=== PATIENT | female | born 1960 | race Caucasian/White ===

== ENCOUNTER 2018-04-19 08:00 | Outpatient (CLI) | payer BC ==
[2018-04-19 17:40] LABS: BASOPHILS # (AUTO) 0.1 10^3/uL (0.0-0.1); BASOPHILS % (AUTO) 1.2 %; EOSINOPHILS # (AUTO) 0.2 10^3/uL (0.0-0.7); HGB - HEMOGLOBIN 13.1 g/dL (12.0-16.0); LYMPHOCYTES # (AUTO) 1.9 10^3/uL (1.5-3.5); LYMPHOCYTES % (AUTO) 41.6 %; MEAN CORPUSCULAR HGB CONC 32.9 g/dL (32.0-36.0); MEAN CORPUSCULAR VOLUME 88.2 fL (81.0-99.0); MEAN PLATELET VOLUME 10.5 fL (7.9-10.8); MONOCYTES # (AUTO) 0.3 10^3/uL (0.0-1.0); MONOCYTES % (AUTO) 7.4 %; NEUTROPHILS # (AUTO) 2.1 10^3/uL (1.5-6.6); NEUTROPHILS % (AUTO) 45.8 %; PLT - PLATELET COUNT 317 10^3/uL (130-450); RED BLOOD COUNT 4.51 10^6/uL (4.20-5.40); RED CELL DISTRIBUTION WIDTH 14.4 % (12.0-15.0); WHITE BLOOD COUNT 4.6 x10^3/uL (4.8-10.8)
[2018-04-19 18:09] LABS: ALBUMIN 4.4 g/dL (3.2-5.5); ALBUMIN/GLOBULIN RATIO 1.6 (1.0-2.2); ALKALINE PHOSPHATASE 38 IU/L (42-121); ALT ALANINE AMINOTRANSFERASE 13 IU/L (10-60); AST ASPARTATE AMINOTRANSFERASE 23 IU/L (10-42); BILIRUBIN,TOTAL 0.8 mg/dL (0.2-1.0); BUN - BLOOD UREA NITROGEN 14 mg/dL (6-20); CALCIUM 9.6 mg/dL (8.5-10.3); CARBON DIOXIDE - CO2 28 mmol/L (21-32); CHLORIDE 103 mmol/L (101-111); CHOL/HDL RATIO 2.7 (<4.4); CHOLESTEROL 218 mg/dL; CREATININE 0.8 mg/dL (0.4-1.0); GFR - MDRD 73 (>89); GLUCOSE 91 mg/dL (70-100); HDL CHOLESTEROL 81 mg/dL; LDL CHOLESTEROL,CALCULATED 122 mg/dL; LDL/HDL RATIO 1.5 (<4.4); SODIUM 139 mmol/L (135-145); TOTAL PROTEIN 7.1 g/dL (6.7-8.2); VLDL CHOLESTEROL 15 mg/dL
== END 2018-04-19 08:01 | disposition home or self-care (01) ==
LOC: LAB.S 08:00
PROVIDERS: ATTEND Family Medicine
DX: Z12.11 Encounter for screening for malignant neoplasm of colon (principal); K59.00 Constipation, unspecified
CPT/HCPCS: 36415; 80053; 80061; 82306; 83721; 84443; 85014; 85018; 85025

== ENCOUNTER 2018-07-13 08:17 | Outpatient (CLI) | payer BC ==
--- NOTE | 2018-07-13 10:49 | Ultrasound Report ---
Procedure Date: 07/13/2018 Accession Number: [id number] / [id number] Procedure: US - Bladder CPT Code: FULL RESULT: EXAM: PELVIS ULTRASOUND, LIMITED, URINARY BLADDER EXAM DATE: 07/13/2018 10:04 AM. CLINICAL HISTORY: Recurrent urinary tract infections. Dysuria. COMPARISON: None. TECHNIQUE: Real-time ultrasound of the urinary bladder, with recording of multiple static images. FINDINGS: Sotelo of the bladder are thin and smooth. No mural nodules or internal echodensities. Prevoid bladder volume is 299 cc. Postvoid bladder volume is 0 cc. IMPRESSION: Normal ultrasound examination of the urinary bladder. No postvoid bladder residual. RADIA
--- NOTE | 2018-07-13 15:14 | Ultrasound Report ---
Procedure Date: 07/13/2018 Accession Number: [id number] / [id number] Procedure: US - Arterial Visceral Complete CPT Code: FULL RESULT: EXAM: RENAL ARTERY DOPPLER ULTRASOUND EXAM DATE: 07/13/2018 10:39 AM. CLINICAL HISTORY: Recurrent UTI, kidney infection, abnormal GFR, elevated D. COMPARISON: None. TECHNIQUE: Real-time sonographic vascular imaging was performed by the train station agent through the renal arterial system with a linear transducer utilizing color-flow, Doppler flow, and spectral analysis. Multiple practice representative static images were saved for review. FINDINGS: Right Kidney: 10.6 X 3.5 X 4.3 cm. Note is made of next renal pelvis. No hydronephrosis or suspicious mass. Right Segmental Artery: Upper pole: PSV 54 cm/sec, RI .59. Mid pole: PSV 71 cm/sec, RI .59. Lower pole: PSV 44 cm/sec, RI .60. Right Renal Artery: Origin: PSV 64 cm/sec, RA/AO .64. Proximal: PSV 88 cm/sec, RA/AO .88. Mid: PSV 95 cm/sec, RA/AO .95. Distal: PSV 86 cm/sec, RA/AO .86. Aorta PSV: 99 cm/sec. RRV Patent: Question of thrombus occluding RRV. Left Kidney: 10.0 X 5.3 X 4.8 cm. Cyst 1.5 x 1.5 x 1.3 cm. No hydronephrosis or suspicious mass. echotexture: Thinning cortex. Left Segmental Artery: Upper pole: PSV 50 cm/sec, RI .62. Mid pole: PSV 62 cm/sec, RI .61. Lower pole: PSV 38 cm/sec, RI .65. Left Renal Artery: Origin: PSV 70 cm/sec, RA/AO .70. Proximal: PSV 92 cm/sec, RA/AO .92. Mid: PSV 117 cm/sec, RA/AO 1.18. Distal: PSV 63 cm/sec, RA/AO .63. LRV Patent: Yes. IMPRESSION: Normal bilateral renal artery duplex. CRITERIA FOR CLASSIFICATION OF RENAL ARTERY (RA) DISEASE BY DUPLEX SCANNING: RA Diameter Reduction/ RA PSV/ RAR: Normal, < 180 cm/sec, < 3.5 < 60%, >= 180 cm/sec, < 3.5 >= 60%, >= 180 cm/sec, >= 3.5 Total Occlusion: Undetectable; Not applicable RADIA
== END 2018-07-13 08:18 | disposition home or self-care (01) ==
LOC: DI 08:17
PROVIDERS: ATTEND Family Medicine
DX: R94.4 Abnormal results of kidney function studies (principal); N39.0 Urinary tract infection, site not specified; R30.0 Dysuria; R03.0 Elevated blood-pressure reading, without diagnosis of hypertension
CPT/HCPCS: 76857; 93975

== ENCOUNTER 2018-07-26 08:47 | Outpatient (CLI) | payer BC ==
[2018-07-26 17:43] LABS: BASOPHILS # (AUTO) 0.1 10^3/uL (0.0-0.1); BASOPHILS % (AUTO) 1.4 %; EOSINOPHILS # (AUTO) 0.2 10^3/uL (0.0-0.7); EOSINOPHILS % (AUTO) 3.5 %; HGB - HEMOGLOBIN 13.1 g/dL (12.0-16.0); LYMPHOCYTES # (AUTO) 1.8 10^3/uL (1.5-3.5); LYMPHOCYTES % (AUTO) 36.3 %; MEAN CORPUSCULAR HEMOGLOBIN 29.5 pg (27.0-31.0); MEAN CORPUSCULAR HGB CONC 33.4 g/dL (32.0-36.0); MEAN CORPUSCULAR VOLUME 88.4 fL (81.0-99.0); MEAN PLATELET VOLUME 10.4 fL (7.9-10.8); MONOCYTES # (AUTO) 0.4 10^3/uL (0.0-1.0); MONOCYTES % (AUTO) 7.2 %; NEUTROPHILS # (AUTO) 2.5 10^3/uL (1.5-6.6); NEUTROPHILS % (AUTO) 51.6 %; PLT - PLATELET COUNT 288 10^3/uL (130-450); RED BLOOD COUNT 4.44 10^6/uL (4.20-5.40); RED CELL DISTRIBUTION WIDTH 14.6 % (12.0-15.0); WHITE BLOOD COUNT 4.9 x10^3/uL (4.8-10.8)
[2018-07-26 18:26] LABS: ALBUMIN 4.4 g/dL (3.2-5.5); ALBUMIN/GLOBULIN RATIO 1.6 (1.0-2.2); CALCIUM 9.6 mg/dL (8.5-10.3); CREATININE 0.8 mg/dL (0.4-1.0); TOTAL PROTEIN 7.1 g/dL (6.7-8.2)
[2018-07-26 18:51] LABS: CREATININE,URINE 44.9 mg/dL
[2018-07-26 19:02] LABS: MICROALBUMIN,URINE < 0.2 mg/dL (0-300.0)
== END 2018-07-26 08:48 | disposition home or self-care (01) ==
LOC: LAB.S 08:47
PROVIDERS: ATTEND Family Medicine
DX: R79.9 Abnormal finding of blood chemistry, unspecified (principal)
CPT/HCPCS: 36415; 80053; 82043; 82570; 85025

== ENCOUNTER 2020-05-18 12:29 | Outpatient (CLI) | payer BC | END 2020-05-18 12:30 | disposition home or self-care (01) | LOC: LAB.S 12:29 → LAB 12:30 | PROVIDERS: ATTEND Family Medicine | DX: Z03.818 Encounter for observation for suspected exposure to other biological agents ruled out (principal); R50.9 Fever, unspecified | CPT/HCPCS: 81599 ==

== ENCOUNTER 2021-03-12 10:51 | Outpatient (CLI) | payer BC ==
--- NOTE | 2021-03-12 13:02 | DEXA Report ---
PROCEDURE: Dexa Spine and/or Hip INDICATIONS: OSTEOPENIA TECHNIQUE: Dual energy x-ray absorptiometry (DXA) was performed on a [facility]. Regions measur ed are the AP Spine, femoral neck, and if needed forearm. COMPARISON: None. FINDINGS: Lumbar Spine: Bone Mineral Density 1.083 g/cm/cm,T score -0.8. Left Hip: Bone Mineral Density 0.817 g/cm/cm,T score -1.5., Left Femoral Neck: Bone Mineral Density 0.702 g/cm/cm, T score -2.4, (T score greater or equal to -1.0: NORMAL) (T score from -1.1 to -2.4: OSTEOPENIA) (T score less than or equal to -2.5 to: OSTEOPOROSIS) Impression: Osteopenia. Patients with diagnosis of osteoporosis or osteopenia should have regular bone mineral density assess ment. For those eligible for Medicare, routine testing is allowed once every 2 years. Testing frequ ency can be increased for patients who have rapidly progressing disease or for those who are receivin g medical therapy to restore bone mass. Reviewed by: Nick Morton MD on 03/12/2021 12:01 PM RONDA Approved by: Nick Morton MD on 03/12/2021 12:01 PM AKDT Station ID: [id number]
== END 2021-03-12 10:52 | disposition home or self-care (01) ==
LOC: DI 10:51
PROVIDERS: ATTEND Nurse Practitioner Family
DX: M85.89 Other specified disorders of bone density and structure, multiple sites (principal)

== ENCOUNTER 2021-03-18 13:01 | Outpatient (CLI) | payer BC ==
--- NOTE | 2021-03-19 10:00 | Mammography Report ---
BILATERAL DIGITAL SCREENING MAMMOGRAM 3D/2D WITH EXAGGERATED CC: 03/18/2021 CLINICAL: Routine screening. Comparison is made to exam dated: 09/29/2013 mammogram - [facility]. The tissue o f both breasts is heterogeneously dense. This may lower the sensitivity of mammography. No significant masses, calcifications, or other findings are seen in either breast. There has been no significant interval change. IMPRESSION: NEGATIVE There is no mammographic evidence of malignancy. A 1 year screening mammogram is recommended. This exam was interpreted at Station ID: [id number]. NOTE: For mammograms, a report in lay terms will be sent to the patient. Approximately 15% of breast malignancies will not be visualized mammographically. In the management of a palpable breast mass, a negative mammogram must not discourage biopsy of a clinically suspicious lesion. Electronically Signed By: Rob Cassidy M.D. ar/penrad:03/18/2021 13:55:21 ACR BI-RADS Category 1: Negative 3341F PARENCHYMAL PATTERN: (D) - The breast(s) demonstrate(s) heterogeneously dense fibroglandular cody conley. BI-RADS CATEGORY: (1) - 1 RECOMMENDATION: (ANNUAL) - Recommend routine annual screening mammography. [id number] 1 year screening LATERALITY: (B)
== END 2021-03-18 13:02 | disposition home or self-care (01) ==
LOC: DI.S 13:01
DX: Z12.31 Encounter for screening mammogram for malignant neoplasm of breast (principal)

== ENCOUNTER 2023-12-28 13:04 | Outpatient (CLI) | payer MEDICARE, BC ==
--- NOTE | 2023-12-29 11:58 | Mammography Report ---
BILATERAL DIGITAL SCREENING MAMMOGRAM 3D/2D WITH EXAGGERATED CC: 12/28/2023 CLINICAL: Routine screening. Comparison is made to exam dated: 03/18/2021 mammogram - [facility]. There are scattered areas of fibroglandular density in both breasts (category b / 25%-50% glandular t issue). No significant masses, calcifications, or other findings are seen in either breast. There has been no significant interval change. IMPRESSION: NEGATIVE There is no mammographic evidence of malignancy. A 1 year screening mammogram is recommended. Based on the Tyrer Cuzick model (a risk assessment model) the patient's lifetime risk is 5.5% and her 10 year risk is 2.6%. According to the ACR, ACS, and NCCN guidelines, an annual breast MRI exam maggi g with mammogram is recommended if the patients lifetime risk is 20% or greater. This exam was interpreted at Station ID: [id number]. NOTE: For mammograms, a report in lay terms will be sent to the patient. Approximately 15% of breast malignancies will not be visualized mammographically. In the management of a palpable breast mass, a negative mammogram must not discourage biopsy of a clinically suspicious lesion. Electronically Signed By: Audra sanches/danna:12/28/2023 16:46:11 ACR BI-RADS Category 1: Negative 3341F PARENCHYMAL PATTERN: (A) - The breast(s) demonstrate(s) scattered fibroglandular densities. BI-RADS CATEGORY: (1) - 1 Mammogram [id number] 1 year screening LATERALITY: (B)
== END 2023-12-28 13:05 | disposition home or self-care (01) ==
LOC: DI.S 13:04
DX: Z12.31 Encounter for screening mammogram for malignant neoplasm of breast (principal); R92.323 Mammographic fibroglandular density, bilateral breasts

== ENCOUNTER 2024-07-07 07:00 | Outpatient (CLI) | payer MEDICARE, BC ==
--- NOTE | 2024-07-07 22:01 | XRAY Report ---
PROCEDURE: Foot 3+V LT INDICATIONS: LEFT FOOT PAIN TECHNIQUE: 3 views of the foot were acquired. COMPARISON: None. FINDINGS: Bones: Minimally displaced transverse fracture at the fifth metatarsal base extending to the TMT nancy cular surface. This corresponds to the patient's site of pain. Bone alignment is otherwise normal. No other fractures or suspicious bone lesions. Soft tissues: No tibiotalar joint effusion. Achilles tendon appears normal. IMPRESSION: Displaced transverse fifth metatarsal base fracture. Reviewed by: Alison Tucker MD on 07/07/2024 10:00 PM PDT Approved by: Alison Tucker MD on 07/07/2024 10:00 PM PDT Station ID: [id number]
== END 2024-07-07 23:59 | disposition home or self-care (01) ==
LOC: DI.S 07:00
PROVIDERS: ATTEND Registered Nurse
DX: S92.352A Displaced fracture of fifth metatarsal bone, left foot, initial encounter for closed fracture (principal)